=== PATIENT | male | born 1970 | race Two or more races ===

== ENCOUNTER 2023-03-24 07:57 | Day surgery (SDC) | payer OTHER ==
[2023-03-22 11:39] VITALS: BMI 27.9
[2023-03-24 09:42] VITALS: BP 110/70; PULSE 74; RESP 18; TEMP 97.3
== END 2023-03-24 09:42 | disposition home or self-care (01) ==
LOC: FASU-ENDO 07:57
PROVIDERS: ATTEND Internal Medicine Gastroenterology
PROC: 0DJD8ZZ Inspection of Lower Intestinal Tract, Via Natural or Artificial Opening Endoscopic (ICD-10-PCS; principal; 2023-03-24 08:49)
DX: Z12.11 Encounter for screening for malignant neoplasm of colon (principal)